=== PATIENT | male | born 1965 | race Caucasian/White ===

== ENCOUNTER 2018-12-14 15:11 | Emergency (ER) | payer MEDICAID ==
[~2018-12-14] VITALS: Ht 182.9 cm; Wt 90.7 kg
[2018-12-14 15:11] VITALS: BP 117/78
--- NOTE | 2018-12-14 15:11 | NUR ---
BIBA TO BED
--- NOTE | 2018-12-14 15:20 | NUR ---
PT BIBA C/O LOWER EXTREMITY PAIN IN ROUTE, LT SHOULDER PAIN WHEN HE ARRIVED, AND DENIES ANY PAIN AT THIS TIME. PT HAS FULL RANGE OF MOTION TO ALL EXTREMITIES, + CMS. VSS. ER TO SEE PT. MEDHX:DM, SCHIZOPHRENIA
[2018-12-14 15:35] VITALS: BP 117/78
--- NOTE | 2018-12-14 15:35 | NUR ---
Patient discharged with v/s stable. Written and verbal after care instructions given and explained. Patient alert, oriented and verbalized understanding of instructions. Ambulatory with steady gait. All questions addressed prior to discharge. ID band removed. Patient advised to follow up with PMD. Rx of IBUPROFEN given. Patient educated on indication of medication including possible reaction and side effects. Opportunity to ask questions provided and answered. PT GIVEN HOMELESS PACKET WITH LIST OF SHELTERS TO STAY AT, GIVEN FOOD UPON DISCHARGE, WEARING WHEATER APPROPRIATE CLOTHING.
== END 2018-12-14 15:35 | disposition home or self-care (01) ==
LOC: MED 15:11
DX: G89.29 Other chronic pain (principal); M25.512 Pain in left shoulder
CPT/HCPCS: 82948; 99282